=== PATIENT | male | born 1960 | race Asian ===

== ENCOUNTER 2020-07-12 16:08 | Emergency (ER) | payer OTHER ==
[2020-07-12 20:31] LABS: Bacteria/HPF None Seen HPF (None Seen); Bilirubin Negative (Negative); Blood, Urine Trace (Negative); Clarity Clear (Clear); Glucose, Urine (Dipstick) Normal (Negative); Ketone, Urine Negative (Negative); Leukocyte Negative Leu/uL (Negative); Nitrite Negative (Negative); Protein, Urine (Dipstick) 30 mg/dL (Neg-Trace); Squamous Epithelial None Seen HPF (0-3); Urobilinogen Normal mg/dL (Less than 2); WBC/HPF 0-3 HPF (0-3); pH, Urine 5.5 (5.0-9.0)
[2020-07-12 20:32] LABS: Sperm/HPF 3+ HPF (None Seen)
[2020-07-12 20:57] LABS: #Eosinphils 0.4 thou/uL (0.0-0.7); #Lymphocytes 2.5 thou/uL (1.20-3.40); #Monocytes 0.6 thou/uL (0.11-0.59); %Basophils 0.4 % (0.0-1.0); %Eosinophils 4.3 % (0.0-10.0); %Lymphocytes 29.7 % (21.0-51.0); %Monocytes 6.6 % (0.0-10.0); Hemoglobin 16.5 g/dL (14.0-18.0); Mean Corpuscular HGB CONC 34.8 g/dL (32.0-36.0); Mean Corpuscular Hemoglobin 32.1 pg (27.0-31.0); Mean Corpuscular Volume 92.3 fL (78.0-98.0); Mean Platelet Volume 6.6 fL (7.4-10.4); Platelet Count 304 thou/uL (130-400); RBC Distribution Width 11.5 % (11.5-14.5); Red Blood Cell (RBC) Count 5.13 mill/uL (4.70-6.10); White Blood Cell (WBC) Count 8.4 thou/uL (4.8-10.8)
[2020-07-12] MEDS ORDERED: Morphine 4 MG/ML VIAL ONE (20:58)
[2020-07-12] MEDS ORDERED: Ondansetron PF 4 MG/2 ML Vial ONE (20:58)
[2020-07-12 21:19] LABS: ALT (SGPT) 11 U/L (8-55); AST (SGOT) 16 U/L (5-34); Albumin 4.5 g/dL (3.5-5.0); Alkaline Phosphatase 73 U/L (40-110); Anion Gap 15 mmol/L (10-20); BUN (Urea Nitrogen) 16 mg/dL (8.4-25.7); Calc. Creatinine Clearance 0 mL/min (70-130); Calcium 9.2 mg/dL (7.8-10.44); Carbon Dioxide 26 mmol/L (22-29); Chloride 103 mmol/L (98-107); Glucose 101 mg/dL (70-105); Potassium 4.1 mmol/L (3.5-5.1); Protein, Total 8.5 g/dL (6.0-8.3); Sodium 140 mmol/L (136-145)
--- NOTE | 2020-07-12 21:43 | CT ---
CT ABDOMEN AND PELVIS NONCONTRAST: 07/12/20 HISTORY: Left flank pain. FINDINGS: Each renal collecting system, ureter and the urinary bladder are decompressed without stone apparent. Mild atelectasis at the lung bases. Prominent degenerative changes throughout the lumbar spine including large Schmorl's nodes protruding through the superior end plates at the T12 and L1 levels. Stenosis is most severe at the central can al L2-3 level. Lack of contrast limits evaluation of the soft tissues. A 1.7 cm low density lesion at the medial cor mala of the right kidney likely represents a cyst. No evidence of bowel obstruction or inflammation. IMPRESSION: No evidence of urinary tract obstruction or calcification. Prominent degenerative changes lumbar spine including severe central canal stenosis at the L2-3 level . POS: BST
== END 2020-07-12 22:30 | disposition home or self-care (01) ==
LOC: ERS 16:08
DX: M54.5 Low back pain (principal)
CPT/HCPCS: 74176; 80053; 81003; 81015; 85025; 87086; 96374; 96375; J2270; J2405